=== PATIENT | male | born 1960 | race Caucasian/White ===

== ENCOUNTER 2017-12-15 19:17 | Outpatient (CLI) | payer OTHER | END 2017-12-15 19:18 | disposition short-term general hospital (02) | LOC: EMS 19:17 | PROVIDERS: ATTEND Surgery | DX: M54.9 Dorsalgia, unspecified (principal); M25.511 Pain in right shoulder; S00.01XA Abrasion of scalp, initial encounter; V19.40XA Pedal cycle driver injured in collision with unspecified motor vehicles in traffic accident, initial encounter; Y93.55 Activity, bike riding; Y92.410 Unspecified street and highway as the place of occurrence of the external cause | CPT/HCPCS: A0425; A0427 ==

== ENCOUNTER 2019-12-12 11:19 | Outpatient (CLI) | payer OTHER ==
--- NOTE | 2019-12-12 12:14 | XRAY Report ---
Reason: PUNCTURE WOUND WITH FOREIGN BODY OF LEFT THUMB Procedure Date: 12/12/2019 Accession Number: [id number] / [id number] Procedure: XRS - Finger(s) LT CPT Code: Final Report FULL RESULT: PROCEDURE: Finger(s) LT INDICATIONS: PUNCTURE WOUND WITH FOREIGN BODY OF LEFT THUMB TECHNIQUE: 3 views of left thumb were obtained. COMPARISON: None. FINDINGS: Left thumb alignment is anatomic. No fracture or dislocation. No bony erosive changes. 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 No suspicious bony lesion. There is no subcutaneous emphysema or radiopaque foreign body. No abnormal calcification is seen. IMPRESSION: No left thumb fracture or dislocation. No radiographic evidence of osteomyelitis. No radiopaque foreign body. Reviewed by: Hussein Mora MD on 12/12/2019 12:13 PM PDT Approved by: Hussein Mora MD on 12/12/2019 12:13 PM PDT Station ID: [id number]
== END 2019-12-12 23:59 | disposition home or self-care (01) ==
LOC: DI.S 11:19
PROVIDERS: ATTEND Physician Assistant Medical
DX: S61.042A Puncture wound with foreign body of left thumb without damage to nail, initial encounter (principal)
CPT/HCPCS: 73140

== ENCOUNTER 2019-12-14 07:30 | Outpatient (CLI) | payer OTHER | END 2019-12-14 23:59 | disposition home or self-care (01) | LOC: LAB.R 07:30 | PROVIDERS: ATTEND Physician Assistant | DX: L03.019 Cellulitis of unspecified finger (principal) | CPT/HCPCS: 81599; 87070; 87075; 87077; 87205 ==